=== PATIENT | female | born 1975 | race Caucasian/White ===

== ENCOUNTER 2017-02-08 10:30 | Inpatient (IN) | payer MEDICAID ==
[~2017-02-08] VITALS: Ht 149.9 cm; Wt 75.5 kg
[~2017-02-08 10:30] MED LIST: FERR27TA; PREN1TAB49
[2017-02-08 10:40] VITALS: BP 121/77; PULSE 89; RESP 19; Ht 149.9 cm; Wt 75.5 kg
[2017-02-08] MEDS ORDERED: CARBOPROST 250 MCG INJ IM PRN (11:00)
[2017-02-08] MEDS ORDERED: OXYTOCIN 30 UNITS/LR 500 ML IV PRN (11:00)
[2017-02-08] MEDS ORDERED: AMPICILLIN 2 GM/NS (PMX) 100 ML IV SCH (11:00)
[2017-02-08] MEDS ORDERED: METHYLERGONOVINE 0.2 MG INJ IM PRN (11:00)
[2017-02-08] MEDS ORDERED: CEFAZOLIN 2 GM/50 ML (PMX) 50 ML IV SCH (11:00)
[2017-02-08] MEDS ORDERED: MISOPROSTOL 200 MCG TAB PR PRN (11:00)
[2017-02-08] MEDS: LACTATED RINGER'S 1,000 ML IV SCH ×2 (11:13→17:00)
--- NOTE | 2017-02-08 11:15 | TRIAGE ---
OB Triage Datetime Report Generated by CPN: 02/08/2017 11:15 Datetime: 02/08/2017 10:52 Maternal Assessment Level of Consciousness: Fully Conscious DTR's/Clonus: DTRs 1+ Headache: Denies Blurred Vision: No Respiratory Effort: Unlabored Breath Sounds, Left: Clear and Equal Breath Sounds, Right: Clear and Equal Nausea/Vomiting: Denies RUQ Epigastric Pain: Denies Facial Edema: None Labor Evaluation Frequency: X2 Monitor Mode: External Duration (sec)2399: 40-50 Quality: Mild Pattern: Normal: <= 5 Contractions in 10 Minutes Resting Tone Mcnary: Relaxed Heart Rate FHR Baseline Rate: 150 Monitor Mode: External US Variability: Moderate 6-25 bpm Accelerations: 15X15 Decelerations: None Category: Category I Pain Assessment Pain Scale: 4 Pain Presence: Intermittent Pain Type: Contraction Pain Location: Back Pain Goal: 3 Pain Relief Measures: Comfort Measures Datetime: 02/08/2017 10:41 Vaginal Exam Dilatation (cms): 3.0 Effacement (%): 80 Station: -2 Exam By: abad fajardo Vaginal Bleeding: None Cervix, Consistency: Soft Cervix, Position: Midposition Presentation 'A': Breech Datetime: 02/08/2017 10:27 Time of Arrival: 02/08/2017 10:27 EGA: 38.0 Arrived By: Ambulatory Arrived From: Home Chief Complaint: PT CAME IN C/O UC'S SINCE 3 DAYS AGO. DENIES ANY BLEDING OR ANY OTHER PROBLEM, BA BY MOVES AT THIS TIME ACCORDING TO PT Movement: Present Contractions: Regular Rupture of Membranes: Denies Vaginal Discharge: Present Recent Sexual Intercouse: Denies Abdominal Trauma: Not Applicable Patient Complaints: Contractions Additional Patient Complaints: NONE Initial Plan: MONITOR AND VE
--- NOTE | 2017-02-08 11:17 | RADRPT ---
PROCEDURE: OB ultrasound for biophysical profile CLINICAL INDICATION: Poor tone. TECHNIQUE: Multiple sonographic images of the pelvis were obtained. Transabdominal views of the g ravid uterus are available for review. The images were reviewed on a PACS workstation. COMPARISON: None FINDINGS: breathing movement = 2/2 tone = 2/2 motion = 2/2 YARELIS = 2/2 YARELIS = 10.7 cm Single live intrauterine with cardiac activity of 144 bpm. position is breech . The placenta is fundal. IMPRESSION: 1. Single live intrauterine gestation. 2. Biophysical profile = 8/8. 3. YARELIS = 10.7 cm. 4. Breech presentation. RPTAT: HH .Sarita Hardy MD, Date Time Electronically viewed and signed by .Sarita Hardy MD, on 02/08/2017 11:17 .G/
[2017-02-08 11:38] LABS: ABNORMAL IP MESSAGE 1; BASOPHILS % 0.4 % (0.0-2.0); EOSINOPHILS # 0.1 10^3/ul (0.0-0.5); EOSINOPHILS % 0.9 % (0.0-7.0); HEMATOCRIT 36.7 % (37.0-47.0); HEMOGLOBIN 11.8 g/dl (12.0-16.0); LYMPHOCYTES # 1.9 10^3/ul (0.8-2.9); LYMPHOCYTES % 27.2 % (15.0-51.0); MEAN CORPUSCULAR HEMOGLOBIN 28.2 pg (29.0-33.0); MEAN CORPUSCULAR HGB CONC 32.2 g/dl (32.0-37.0); MEAN CORPUSCULAR VOLUME 87.8 fl (82.0-101.0); MEAN PLATELET VOLUME 14.2 fl (7.4-10.4); MONOCYTE # 0.6 10^3/ul (0.3-0.9); MONOCYTES % 9.3 % (0.0-11.0); NEUTROPHIL # 4.3 10^3/ul (1.6-7.5); NEUTROPHILS % 61.6 % (39.0-77.0); PLATELET COUNT 165 10^3/UL (140-415); RED BLOOD COUNT 4.18 10^6/ul (4.20-5.40); RED CELL DISTRIBUTION WIDTH 14.8 % (11.5-14.5); WHITE BLOOD COUNT 6.9 10^3/ul (4.8-10.8)
[2017-02-08 11:50] LABS: POSITIVE DIFF @See below
[2017-02-08 12:15] LABS: INR 0.91; PROTIME 12.2 Sec (12.2-14.2)
--- NOTE | 2017-02-08 16:37 | HP ---
Date/Time of Note Date/Time of Note DATE: 02/08/17 TIME: 16:31 OB - History Hx of Present Free Text/Dictation Admitted complaining of onset of a uterine contraction 3 days prior to this admission Chief Complaint: Uterine contractions for 5 times in an hour Estimated Due Date: Feb 22, 2017 : 5 Para: 4 Care: Good Care Ultrasounds: Normal mid trimester US Obstetrical Complications: Gestational Diabetes Medical Complications: None Past Family/Social History * Past Medical, Surgical, Family and Obstetric Histories reviewed from chart. Blood Type: A+ Rubella: immune RPR/VDRL: Negative GBS Status: Unknown HBsAG: Negative OB Admission Exam Vital Signs Vital Signs Vital Signs Date Time Temp Pulse Resp B/P Pulse Ox O2 Delivery O2 Flow Rate FiO2 02/08/17 10:40 98.6 89 19 121/77 99 Room Air Physical Exam HEENT: WNL Heart: Rhythm Normal Lungs: Clear, Equal Abdomen: WNL Extremities: Normal Reflexes: Normal Cervical Dilatation: 3cm Effacement: 25% Station: -3 Membranes: Intact Heart Rate: 140's Accelerations: Accelerations Present Decelerations: No Decelerations Varibility: Marked Contractions on Admission: >10 Minutes Apart Date/Time Contractions Began: 02/08/2017 Frequency of Contractions: 4-5 times an hour Duration: Over 20-30 seconds Intensity: Mild Last 72 hours Lab Results CBC & BMP 02/08/17 11:13 OB Assessment/Plan Other Assessment: Term gestation Possible uterine contractions Patient with breech presentation 3 cm cervical dilatation Other plan: Will observe for cervical change Currently patient is contractions 2 or 3 times an hour Cervical change-we will proceed with Obtain over the phone very consult obtain DAVID LEIGH MD Feb 08, 2017 16:37
--- NOTE | 2017-02-08 17:21 | RADRPT ---
PROCEDURE: US OB. CLINICAL INDICATION: Size and dates TECHNIQUE: Multiple sonographic images of the pelvis and gravid uterus were obtained. The images were reviewed on a PACS workstation. COMPARISON: Same day FINDINGS: There is a single viable intrauterine gestation. Cardiac activity is present with 140 beats per min brian. There is a breech presentation. The placenta is maternal right. There is no evidence for an abruption or placenta previa. Measurements were made in order to determine age. The results are as follows: BPD =9.3 cm HC =32.6 cm AC =33.8 cm FL =7.3 cm Estimated gestational age of approximately 37 weeks and 3 days based on ultrasound measurements. Clinical age: 37 weeks and 6 days. The estimated date of delivery is 02/26/17, based on ultrasound measurements. The EFW = 3229 g, 52%, based on LMP age. RPTAT: AA IMPRESSION: Single viable intrauterine gestation of approximately 37 weeks and 3 days based on ultrasound measu rements. .Kristopher North MD, MD Date Time Electronically viewed and signed by .Kristopher North MD, on 02/08/2017 17:20 .S/
[2017-02-08] MEDS ORDERED: OXYTOCIN 30 UNITS/LR 500 ML IV SCH ×2 (20:30)
[2017-02-09] MEDS: LACTATED RINGER'S 1,000 ML IV SCH ×4 (03:00→22:07)
[2017-02-09] MEDS ORDERED: CEFAZOLIN 1 GM INJ ONE (07:00)
[2017-02-09] MEDS ORDERED: TERBUTALINE 1 ML ONE (07:49)
[2017-02-09] MEDS ORDERED: TERBUTALINE 1 MG/ML INJ SC ONE (08:00)
[2017-02-09] MEDS ORDERED: ONDANSETRON 4 MG INJ IV ONE ×2 (08:30→09:00)
[2017-02-09] MEDS ORDERED: CITRIC ACID/NA CITRATE 30 ML CUP PO ONE ×2 (08:30→09:00)
[2017-02-09] MEDS ORDERED: morphine SULFATE/PF (10 MG/10 ML) INJ ONE (08:43)
[2017-02-09] MEDS ORDERED: DEXAMETHASONE 4 MG/ML 1 ML INJ ONE (08:44)
[2017-02-09] MEDS ORDERED: PHENYLephrine (100 MCG/ML) 5ML SYG ONE ×3 (08:44→09:50)
[2017-02-09] MEDS ORDERED: KETOROLAC 30 MG INJ ONE (08:44)
[2017-02-09] MEDS ORDERED: METOCLOPRAMIDE 10 MG INJ ONE ×2 (08:44→10:14)
[2017-02-09] MEDS ORDERED: ONDANSETRON 4 MG INJ ONE ×2 (08:44→08:50)
[2017-02-09] MEDS ORDERED: OXYTOCIN 10 UNIT INJ ONE (08:44)
[2017-02-09] MEDS ORDERED: CITRIC ACID/NA CITRATE 30 ML CUP ONE (08:50)
[2017-02-09] MEDS ORDERED: FENTAnyl 50 MCG/ML VIAL IV PRN ×2 (09:30)
[2017-02-09] MEDS ORDERED: MEPERIDINE 25 MG INJ IV PRN (09:30)
[2017-02-09] MEDS ORDERED: KETOROLAC 30 MG INJ IV PRN (09:30)
[2017-02-09] MEDS ORDERED: OXYCODONE/ACETAMINOPHEN (5/325) TAB PO PRN ×2 (09:30→13:30)
[2017-02-09] MEDS ORDERED: morphine (1 MG/ML) 10ML SYRINGE IV PRN ×2 (09:30)
[2017-02-09] MEDS ORDERED: METOCLOPRAMIDE 10 MG INJ IV PRN (09:30)
[2017-02-09] MEDS ORDERED: ACETAMINOPHEN 500 MG TAB PO PRN (09:30)
[2017-02-09] MEDS ORDERED: NALBUPHINE HCL (10 MG/1 ML) INJ IV PRN (09:30)
[2017-02-09] MEDS ORDERED: HYDROmorphONE (0.2 MG/ML) 10ML SYG IV PRN ×2 (09:30)
[2017-02-09] MEDS ORDERED: EPHEDrine SULFATE 50 MG/5 ML SYG IV PRN (09:30)
[2017-02-09] MEDS ORDERED: LABETALOL HCL 20MG INJ IV PRN (09:30)
[2017-02-09] MEDS ORDERED: ONDANSETRON 4 MG INJ IV PRN (09:30)
[2017-02-09] MEDS ORDERED: NALOXONE (0.4 MG/ML) INJ IV PRN (09:30)
[2017-02-09] MEDS ORDERED: DIPHENHYDRAMINE 50 MG INJ IV PRN ×2 (09:30)
[2017-02-09 10:17] LABS: BARBITURATES Negative (NEGATIVE); BENZODIAZEPINES Negative (NEGATIVE); CANNABINOIDS Negative (NEGATIVE); COCAINE Negative (NEGATIVE); OPIATES Negative (NEGATIVE)
--- NOTE | 2017-02-09 10:19 | OPR ---
Operative Report Planned Procedure Procedure date Feb 09, 2017 Procedure(s) Primary section Performed by see signature line Assisting provider: YEN ALDRIDGE MD Anesthesiologist: CHERI DE LA FUENTE MD Pre-procedure diagnosis 38 weeks plus gestation Breech presentation Anesthesia Type: spinal Procedure Description Under satisfactory anaesthesia a Pfannenstiel incision was made two fingerbreadth above and parallel to the symphysis of pubis. Incision was extended laterally to the border of the Recti muscles on either sides. Incision was carried down with sharp and blunt dissection until fascia was reached. Anterior Recti muscle fascia was incised in mid portion and incision extended laterally to the border of skin incision. Fascia was mobilized from muscle superiorly and Recti muscles were from midline using sharp and blunt dissection. Peritoneum was visualized; Avoiding bowel and bladder it was incised . Incision was extended superiorly and inferiorly. Bladder blade was placed. Posterior peritoneum covering the lower segment of the uterus and lower segment of the uterus were incised. Incision was extended laterally to the border of Round Lig. on either sides and baby was delivered via total breech extraction without difficulty. . Amniotic fluid appeared clear. Cord blood was obtained and cord had 3 vessels . Placenta was delivered spontaneously and appeared intact and complete. Intrauterine cavity was rubbed with a laparotomy sponge. Uterine incision was closed in 2 layers using running stitches of No1 Monocryl. Hemostasis appeared secure. Ovaries and Fallopian tubes were within normal limits. Announcing needle, lap sponge and instrument count to be correct abdomen was closed in layers as follows: Peritoneum and Recti muscles with running stitches of 20 Vicryl. Fascia with running stitch of No 1 PDS. Subcutaneous tissue with running stitches of 20 Chromic and skin was closed using Insorb Patient tolerated the procedure well and was transferred to [facility] in good condition. Post-Procedure Post-procedure diagnosis Status post Findings: Live Baby with latosha breech presentation Estimated blood loss: other (Over 500) Specimen(s): no Grafts/Implants: no Complication(s): no Pt Condition post procedure: stable Disposition: PACU Physician Certification I, the undersigned physician, hereby certify that I have discussed the procedure described in this consent form with this patient (or the patient's legal medical office representative), including: * The risk and benefits of the procedure; * Any adverse reactions that may reasonably be expected to occur; * Any alternative efficacious methods of treatment which may be medically viable ; * The potential problems that may occur during recuperation; * Potential for blood transfusion and associated risks/benefits; and * Any research or economic interest I may have regarding this treatment. I further certify that the patient/legally responsible person was encouraged to ask question and that all questions were answered. DAVID CHANG MD Feb 09, 2017 10:19
[2017-02-09] MEDS ORDERED: MISOPROSTOL 200 MCG TAB PR PRN (13:30)
[2017-02-09] MEDS ORDERED: NA PHOSPHATE/BIPHOS 133 ML ENEMA PR PRN (13:30)
[2017-02-09] MEDS ORDERED: DEXTROSE 50% 50 ML SYRINGE IV PRN ×2 (13:30)
[2017-02-09] MEDS ORDERED: LANOLIN 7 GM TUBE TOP PRN (13:30)
[2017-02-09] MEDS ORDERED: METHYLERGONOVINE 0.2 MG INJ IM PRN (13:30)
[2017-02-09] MEDS ORDERED: GLUCOSE GEL 15 GRAM TUBE BUCCAL PRN (13:30)
[2017-02-09] MEDS ORDERED: GLUCOSE GEL 15 GRAM TUBE PO PRN ×2 (13:30)
[2017-02-09] MEDS ORDERED: GLUCAGON 1 MG INJ IM PRN (13:30)
[2017-02-09] MEDS: ACCU-CHEK XX SCH ×2 (13:30→20:54)
[2017-02-09] MEDS ORDERED: OXYTOCIN 30 UNITS/LR 500 ML IV PRN (13:30)
[2017-02-09] MEDS ORDERED: CARBOPROST 250 MCG INJ IM PRN (13:30)
[2017-02-09] MEDS ORDERED: IBUPROFEN 800 MG TAB PO SCH (14:00)
[2017-02-09] MEDS: CEFAZOLIN 2 GM/50 ML (PMX) 50 ML IV SCH ×2 (14:05→22:06)
[2017-02-09] MEDS: metFORMIN (XR) 500 MG TAB PO SCH (18:10)
[2017-02-09] MEDS: CLINDAMYCIN 300 MG CAP PO SCH (18:10)
[2017-02-09] MEDS: KETOROLAC 30 MG INJ IV PRN (18:11)
[2017-02-09] MEDS: SENNA/DOCUSATE NA (8.6MG/50MG) TAB PO SCH (20:57)
[2017-02-09] MEDS ORDERED: metFORMIN (XR) 500 MG TAB PO SCH (21:00)
[2017-02-10] MEDS: CLINDAMYCIN 300 MG CAP PO SCH ×4 (01:03→18:18)
[2017-02-10] MEDS: ACCU-CHEK XX SCH ×5 (02:00→20:05)
[2017-02-10 04:00] VITALS: BP 96/45; PULSE 86; RESP 18
[2017-02-10] MEDS: CEFAZOLIN 2 GM/50 ML (PMX) 50 ML IV SCH (05:56)
[2017-02-10] MEDS: KETOROLAC 30 MG INJ IV PRN ×2 (05:57→12:01)
[2017-02-10] MEDS: LACTATED RINGER'S 1,000 ML IV SCH ×3 (07:29→21:05)
[2017-02-10 08:30] VITALS: BP 92/54; PULSE 85; RESP 18
[2017-02-10] MEDS: SENNA/DOCUSATE NA (8.6MG/50MG) TAB PO SCH ×2 (09:27→21:15)
[2017-02-10] MEDS: metFORMIN (XR) 500 MG TAB PO SCH ×2 (09:27→18:18)
[2017-02-10] MEDS ORDERED: BISACODYL 10 MG SUPP PR ONE (10:30)
--- NOTE | 2017-02-10 10:56 | NSTRPT ---
NST Information Datetime Report Generated by CPN: 02/10/2017 10:56 Datetime: 02/06/2017 10:41 NST Information EGA: 37.5 Datetime: 02/06/2017 10:30 Test Number: 1 Time on Monitor: 02/06/2017 11:00 Time off Monitor: 02/06/2017 11:48 NST Duration (Min): 48 Reason for NST: Diabetes Mellitus; Other Reason for NST Other: A1DM Test and Monitor Explained: Monitor Explained; Test Explained; Verbalized Understanding; Breastfee ding Info Given Pulse: 75 Resp: 18 SBP: 115 DBP: 71 Test Evaluation NST Interventions: None Patient States Movement: Present Contraction Frequency: X4(mild) FHR Baseline : 145 Variability: Moderate 6-25bpm Accelerations: 15X15 Decelerations: None FHR Category: Category I NST Results: Reactive Comments: To u/s. YARELIS 11.8cm. BREECH. FBS 110. Pt was suppose to bring in glucose log, states forg ot, instructed to bring with next visit. 1200-Pt home undelivered with labor precautions, kick count instructions reviewed and follo w up NST appt given. States understanding and denies further questions at this time. Electronically Signed By E-Signature: with User ID: [id number]
[2017-02-10 11:19] LABS: ABNORMAL IP MESSAGE 1; BASOPHILS % 0.3 % (0.0-2.0); EOSINOPHILS % 0.2 % (0.0-7.0); HEMATOCRIT 30.1 % (37.0-47.0); HEMOGLOBIN 9.6 g/dl (12.0-16.0); LYMPHOCYTES % 17.3 % (15.0-51.0); MEAN CORPUSCULAR HEMOGLOBIN 28.1 pg (29.0-33.0); MEAN CORPUSCULAR HGB CONC 31.9 g/dl (32.0-37.0); MEAN PLATELET VOLUME 14.1 fl (7.4-10.4); MONOCYTES % 8.5 % (0.0-11.0); NEUTROPHIL # 8.6 10^3/ul (1.6-7.5); NEUTROPHILS % 73.1 % (39.0-77.0); PLATELET COUNT 156 10^3/UL (140-415); RED BLOOD COUNT 3.42 10^6/ul (4.20-5.40); RED CELL DISTRIBUTION WIDTH 14.9 % (11.5-14.5); WHITE BLOOD COUNT 11.8 10^3/ul (4.8-10.8)
[2017-02-10 11:25] LABS: POSITIVE DIFF @See below
[2017-02-10 12:06] VITALS: BP 92/52; PULSE 77; RESP 14
[2017-02-10 14:27] LABS: RUBELLA ANTIBODY - IGG 3.53 index
[2017-02-10] MEDS: HYDROCODONE/APAP (5/325) TAB PO PRN ×2 (16:42→21:15)
[2017-02-10 16:50] VITALS: BP 102/60; PULSE 77; RESP 16
--- NOTE | 2017-02-10 18:48 | PN ---
Date/Time of Note Date/Time of Note DATE: 02/10/17 TIME: 18:44 Assessment/Plan VTE Prophylaxis VTE Prophylaxis Intervention: ambulation Lines/Catheters IV Catheter Type (from Nrsg): Peripheral IV Assessment/Plan Assessment/Plan Status post section postop day 1 We will advance diet and ambulate Continue to monitor vital signs and blood sugar Subjective 24 Hr Interval Summary Passing flatus No bowel movement Complaining of slight incisional pain Constitutional: BM, ambulates, flatus, improved, no complaints, urine output Pain Control: well controlled Exam/Review of Systems Vital Signs Vitals Vital Signs Date Time Temp Pulse Resp B/P Pulse Ox O2 Delivery O2 Flow Rate FiO2 02/10/17 16:50 97.9 77 16 102/60 Room Air 02/10/17 15:23 96 21 02/10/17 12:17 Intake and Output 02/09/17 02/09/17 02/10/17 15:00 23:00 07:00 Intake Total 245 ml 1100 ml Output Total 1150 ml 1100 ml Balance -905 ml 1100 ml -1100 ml Exam Free Text/Dictation Abdomen is soft not distended bowel sounds present Incision is covered Constitutional: alert, oriented, well developed Psych: nl mood/affect, no complaints Head: atraumatic, normocephalic Eyes: EOMI, nl conjunctiva, nl lids, nl sclera ENMT: mucosa pink and moist, nl external ears & nose, nl lips & teeth, nl nasal mucosa & septum Neck: non-tender, supple Respiratory: clear to auscultation, normal air movement Cardiovascular: nl pulses, regular rate and rhythm Gastrointestinal: nl liver, spleen, non-tender, soft Drains None Musculoskeletal: nl extremities to inspection, nl gait and stance Extremities: normal pulses Neurological: 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
[2017-02-11] MEDS: ACCU-CHEK XX SCH (02:00)
[2017-02-11 04:10] VITALS: BP 120/70; PULSE 69; RESP 18
[2017-02-11] MEDS: HYDROCODONE/APAP (5/325) TAB PO PRN ×2 (04:12→13:23)
[2017-02-11] MEDS: LACTATED RINGER'S 1,000 ML IV SCH ×3 (05:05→21:05)
[2017-02-11] MEDS: CLINDAMYCIN 300 MG CAP PO SCH ×4 (06:12→18:08)
[2017-02-11 08:00] VITALS: BP 109/62; PULSE 76; RESP 20
[2017-02-11] MEDS: metFORMIN (XR) 500 MG TAB PO SCH ×3 (08:05→18:08)
[2017-02-11] MEDS: SENNA/DOCUSATE NA (8.6MG/50MG) TAB PO SCH ×2 (09:00→21:21)
[2017-02-11 12:29] VITALS: BP 100/60; PULSE 76; RESP 19
[2017-02-11 15:40] VITALS: BP 119/82; PULSE 74; RESP 18
--- NOTE | 2017-02-11 17:54 | DS ---
Date/Time of Note Date/Time of Note home next day DATE: 02/11/17 TIME: 17:52 Obstetrical Discharge Record Final Diagnosis Final Diagnosis: Term delivered Other Final Diagnosis S/P C/S Section Section: Primary Primary Indication breech presentation Complications Gestational Diabetes Condition on Discharge Physical Assessment Last Vitals: see nurses notes Voiding: Yes Bowel Movement: Yes Breast: Soft, non-tender, Filling Fundus: Firm Abdomen and Incision: soft BS + Incisiom healing well Calf Tenderness: No Patient Condition: Good DAVID CHANG MD Feb 11, 2017 17:54
--- NOTE | 2017-02-11 18:03 | DS ---
Date/Time of Note Date/Time of Note DATE: 02/11/17 TIME: 18:02 Discharge Summary Admission/Discharge Info Admit Date/Time Feb 08, 2017 at 10:54 Discharge Date/Time February 12, 2017 Discharge Diagnosis Status post Patient Condition: Good Procedures Primary delivery Hx of Present Illness 41-year-old female admitted at 38 weeks with uterine contractions which subsided however had a primary at 38+ weeks for episode of prolonged variable deceleration of heart tones with breech presentation Hospital Course Uncomplicated Home Meds Reported Medications Ferrous Sulfate (Iron) 1 Tab Tablet 11/23/10 Vits W-Ca,Fe,Fa(<1MG) () 1 Tab Tablet 11/23/10 Follow-up Plan 1 week in clinic Primary Care Provider Care Physician No Primary Time spent on discharge: > 30 minutes Pending Labs Laboratory Tests Test 02/10/17 18:11 02/10/17 21:13 02/11/17 02:11 02/11/17 08:02 Bedside Glucose 91mg/dL (70-220) 82mg/dL (70-220) 79mg/dL (70-220) 86mg/dL (70-220) Test 02/11/17 10:36 02/11/17 17:22 Bedside Glucose 101mg/dL (70-220) 85mg/dL (70-220) DAVID CHANG MD Feb 11, 2017 18:03
--- NOTE | 2017-02-11 18:04 | PD.PPDC ---
MATERIALS ANALYST Discharge Instruction Provider Information Physician Information 41-year-old female had primary delivery for breech presentation Diagnosis Final Diagnosis: Status post delivery Condition Patient Condition: Good Diet Diet: Resume Regular Diet Activity/Restrictions Activity: September Shower Restrictions: No Exercising No Lifting Nothing in the Vagina Return to Work or School: Apr 13, 2017 Follow-up Follow-up with Physician: 1, Week/Weeks (In clinic for follow-up) Return to clinic for MANAGING BROKER Instructions: Fever greater than 101 Chills OB Instructions: Breast Tenderness Depression Surgical Instructions: Incisional Drainage Incisional Redness DAVID CHANG MD Feb 11, 2017 18:04
[2017-02-11] MEDS ORDERED: IBUP800T25 PO (18:05)
[2017-02-11] MEDS ORDERED: METF500T3 PO (18:12)
[2017-02-11 20:00] VITALS: BP 134/72; PULSE 89; RESP 16
[2017-02-12] MEDS: CLINDAMYCIN 300 MG CAP PO SCH ×2 (00:44→06:11)
[2017-02-12] MEDS: ACCU-CHEK XX SCH (02:00)
[2017-02-12] MEDS: LACTATED RINGER'S 1,000 ML IV SCH (05:05)
[2017-02-12] MEDS: SENNA/DOCUSATE NA (8.6MG/50MG) TAB PO SCH (09:00)
[2017-02-12] MEDS ORDERED: DIPHTH/TET/ACEL PERTUSS (ADULT) 0.5 ML VIAL IM* ONE (09:00)
[2017-02-12] MEDS: metFORMIN (XR) 500 MG TAB PO SCH (09:58)
[2017-02-12] MEDS ORDERED: IBUPROFEN 800 MG TAB PO SCH (18:01)
== END 2017-02-12 14:00 | disposition home or self-care (01) | DRG 766 ==
LOC: OBT 10:30 → L-D 10:32 → OBT 10:54 → L-D 10:54 → PP1 02-09 12:41
PROVIDERS: ADMIT Obstetrics & Gynecology; ATTEND Obstetrics & Gynecology
PROC: 10D00Z1 Extraction of Products of Conception, Low, Open Approach (ICD-10-PCS; principal; 2017-02-09 09:45)
DX: O32.1XX0 Maternal care for breech presentation, not applicable or unspecified (principal); Z37.0 Single live birth; Z3A.38 38 weeks gestation of pregnancy
CPT/HCPCS: 76815; 76818; 80307; 82947; 82962; 85025; 85610; 85730; 86592; 86703; 86762; 86850; 86900; 86901; 87340; 90715; 94760; 99464; G0463; J0690; J1100; J1885; J2274; J2370; J2405; J2590; J2765; J3105; J7120

== ENCOUNTER 2017-03-22 21:04 | Emergency (ER) | payer MEDICAID ==
[~2017-03-22] VITALS: Ht 160 cm; Wt 69.0 kg
[~2017-03-22 21:04] MED LIST changes: +IBUP800T25 PO; +METF500T3 PO
[2017-03-22 21:10] VITALS: Ht 160 cm; Wt 69.0 kg
[2017-03-22] MEDS ORDERED: ONDANSETRON 4 MG INJ IV STA (21:54)
[2017-03-22] MEDS ORDERED: morphine 4 MG/ML VIAL IV STA (21:54)
--- NOTE | 2017-03-22 23:04 | RADRPT ---
PROCEDURE: US Abdomen. CLINICAL INDICATION: Abdominal pain. TECHNIQUE: Multiple real-time images were acquired of the patient's abdomen and retroperitoneum ut ilizing a high resolution transducer with Doppler interrogation. Images were reviewed on a PACS work station COMPARISON: None available FINDINGS: The liver demonstrates mild enlargement in size, measuring 17.4 cm. There is diffuse heterogeneous h yperechoic echotexture consistent with mild fatty infiltration. The liver capsule margins are ghada h without evidence of nodularity. There is no intrahepatic biliary ductal dilatation or masses. Th e portal vein demonstrates normal hepatopetal flow. The gallbladder is adequately distended without evidence of gallstones, wall thickening or pericholecystic fluid. The sonographic Fuentes sign is a bsent. No intra or extrahepatic biliary dilatation is seen. The common bile duct measures 4.3 mm in maximal dimension. The visualized portions of the pancreas are unremarkable. No free fluid is kemal ntified. The right kidney is normal size, and demonstrates normal echogenicity and morphology. The right kid niurka measures 9.5 cm in long dimension. There is no dilatation of the pelvicaliceal system. There a re no perinephric fluid collections. There are no areas of increased echogenicity to suggest nephro lithiasis. The visualized portions of the aorta are normal in appearance. IMPRESSION: 1. Hepatomegaly with mild fatty infiltration. 2. Otherwise, normal sonographic findings of the abdomen. No evidence of gallstones or cholecystit is. RPTAT: HGAS .Jac Toussaint MD, Date Time Electronically viewed and signed by .Jac Toussaint MD, MD on 03/22/2017 23:04 .S/
[2017-03-22 23:31] LABS: BASOPHIL # 0.1 10^3/ul (0.0-0.1); BASOPHILS % 0.4 % (0.0-2.0); EOSINOPHILS # 0.3 10^3/ul (0.0-0.5); EOSINOPHILS % 1.8 % (0.0-7.0); HEMOGLOBIN 12.8 g/dl (12.0-16.0); LYMPHOCYTES # 1.7 10^3/ul (0.8-2.9); LYMPHOCYTES % 11.9 % (15.0-51.0); MEAN CORPUSCULAR HEMOGLOBIN 28.6 pg (29.0-33.0); MEAN CORPUSCULAR VOLUME 89.5 fl (82.0-101.0); MEAN PLATELET VOLUME 12.3 fl (7.4-10.4); MONOCYTE # 0.8 10^3/ul (0.3-0.9); MONOCYTES % 5.8 % (0.0-11.0); NEUTROPHIL # 11.2 10^3/ul (1.6-7.5); NEUTROPHILS % 79.6 % (39.0-77.0); PLATELET COUNT 250 10^3/UL (140-415); RED BLOOD COUNT 4.47 10^6/ul (4.20-5.40); RED CELL DISTRIBUTION WIDTH 15.2 % (11.5-14.5); WHITE BLOOD COUNT 14.1 10^3/ul (4.8-10.8)
[2017-03-22 23:50] LABS: ALBUMIN 4.3 g/dl (3.3-4.9); ALBUMIN/GLOBULIN RATIO 1.07; BILIRUBIN,INDIRECT 0.3 mg/dl (0-1.1); BILIRUBIN,TOTAL 0.3 mg/dl (0.2-1.3); CALCIUM 9.5 mg/dl (8.4-10.2); CREATININE 0.8 mg/dl (0.44-1.00); POTASSIUM 4.2 mmol/L (3.5-5.1); TOTAL PROTEIN 8.3 g/dl (6.1-8.1)
[2017-03-22 23:58] LABS: ADD UMIC YES; UR ASCORBIC ACID NEGATIVE (NEGATIVE); UR BACTERIA FEW /HPF (NONE SEEN); UR BILIRUBIN (Dip) NEGATIVE (NEGATIVE); UR BLOOD (Dip) 2+ mg/dL (NEGATIVE); UR CLARITY SLIGHTLY CLOUDY (CLEAR); UR COLOR YELLOW (YELLOW); UR GLUCOSE (Dip) NEGATIVE (NEGATIVE); UR KETONES (Dip) NEGATIVE (NEGATIVE); UR LEUKOCYTE ESTERASE (Dip) 1+ Leu/ul (NEGATIVE); UR NITRITE (Dip) NEGATIVE (NEGATIVE); UR RBC 1 /HPF (0-5); UR SPECIFIC GRAVITY (Dip) 1.023 (1.003-1.030); UR SQUAMOUS EPITHELIAL CELL FEW /HPF (FEW); UR TOTAL PROTEIN (Dip) NEGATIVE (NEGATIVE); UR UROBILINOGEN (Dip) 1+ mg/dL (NEGATIVE)
[2017-03-23] MEDS ORDERED: CIPR500T4 PO (00:15)
--- NOTE | 2017-03-23 00:29 | ERD ---
ER Documentation Chief Complaint Chief Complaint epigastric pain x2 hours after eating cake. 6 wks ago. HPI 41-year-old female presenting with a chief complaint of epigastric pain 2 hours. Patient was eating cake when the symptoms began. History of 6 weeks ago. Has not taken any medications to relieve the symptoms. Describes the pain as epigastric and right upper quadrant. Nausea, vomiting, diarrhea, constipation, similar symptoms in the past. Denies alcohol abuse and drug use. No aggravating or alleviating factors. No radiation of pain. Pain described as 7 out of 10 and worse with pressure. Patient has no other complaints and describes no other associated manifestations. Nursing notes have been reviewed and are consistent with history given. ROS All systems reviewed and are negative except as per history of present illness. Medications Home Meds Active Scripts Ciprofloxacin Hcl* (Ciprofloxacin Hcl*) 500 Mg Tablet, 500 MG PO BID for 14 Days , TAB Prov:PIERCE GARCIA PA-C 03/23/17 Metformin* (Glucophage* XR) 500 Mg Tab.sr.24h, 500 MG PO WITH BREAKFAST DINNE, # 120 6 Refills Prov:DAVID CHANG MD 02/11/17 Ibuprofen* (Ibuprofen*) 800 Mg Tablet, 800 MG PO Q8, #30 TAB 0 Refills Prov:DAVID CHANG MD 02/11/17 Reported Medications Ferrous Sulfate (Iron) 1 Tab Tablet 11/23/10 Vits W-Ca,Fe,Fa(<1MG) () 1 Tab Tablet 11/23/10 Allergies Allergies: Coded Allergies: No Known Allergy (Verified , 03/22/17) PMhx/Soc Medical and Surgical Hx: pt denies Medical Hx History of Surgery: Yes (C SECTION 01/2017) Anesthesia Reaction: No Hx Neurological Disorder: No Hx Respiratory Disorders: No Hx Cardiac Disorders: No Hx Psychiatric Problems: No Hx Miscellaneous Medical Probl: No Hx Alcohol Use: No Hx Substance Use: No Hx Tobacco Use: No Smoking Status: Never smoker Physical Exam Vitals Vital Signs Date Time Temp Pulse Resp B/P Pulse Ox O2 Delivery O2 Flow Rate FiO2 03/22/17 21:10 97.4 72 18 100/51 98 Physical Exam Const: Obese 41-year-old female no acute distress. Head: Atraumatic Eyes: Normal Conjunctiva ENT: Normal External Ears, Nose and Mouth. Neck: Full range of motion..~ No meningismus. Resp: Clear to auscultation bilaterally Cardio: Regular rate and rhythm, no murmurs Abd: Mild right upper quadrant tenderness. No liver palpated. Soft, non distended. Normal bowel sounds Skin: No petechiae or rashes Back: No midline or flank tenderness. No CVA tenderness. Ext: No cyanosis, or edema Neur: Awake and alert Psych: Normal Mood and Affect Result Diagram: 03/22/17223103/22/172231 Results 24 hrs Laboratory Tests Test 03/22/17 22:32 White Blood Count 14.110^3/ul Red Blood Count 4.4710^6/ul Hemoglobin 12.8g/dl Hematocrit 40.0% Mean Corpuscular Volume 89.5fl Mean Corpuscular Hemoglobin 28.6pg Mean Corpuscular Hemoglobin Concent 32.0g/dl Red Cell Distribution Width 15.2% Platelet Count 14416^3/UL Mean Platelet Volume 12.3fl Neutrophils % 79.6% Lymphocytes % 11.9% Monocytes % 5.8% Eosinophils % 1.8% Basophils % 0.4% Nucleated Red Blood Cells % 0.0/100WBC Neutrophils # 11.210^3/ul Lymphocytes # 1.710^3/ul Monocytes # 0.810^3/ul Eosinophils # 0.310^3/ul Basophils # 0.110^3/ul Nucleated Red Blood Cells # 0.010^3/ul Urine Color YELLOW Urine Clarity SLIGHTLY CLOUDY Urine pH 6.0 Urine Specific [place] 1.023 Urine Ketones NEGATIVEmg/dL Urine Nitrite NEGATIVEmg/dL Urine Bilirubin NEGATIVEmg/dL Urine Urobilinogen 1+mg/dL Urine Leukocyte Esterase 1+Giovany/ul Urine Microscopic RBC 1/HPF Urine Microscopic WBC 2/HPF Urine Squamous Epithelial Cells FEW/HPF Urine Bacteria FEW/HPF Urine Hemoglobin 2+mg/dL Urine Glucose NEGATIVEmg/dL Urine Total Protein NEGATIVEmg/dl Sodium Level 143mmol/L Potassium Level 4.2mmol/L Chloride Level 104mmol/L Carbon Dioxide Level 29mmol/L Anion Gap 14 Blood Urea Nitrogen 18mg/dl Creatinine 0.80mg/dl Glucose Level 117mg/dl Calcium Level 9.5mg/dl Total Bilirubin 0.3mg/dl Direct Bilirubin 0.00mg/dl Indirect Bilirubin 0.3mg/dl Aspartate Amino Transf (AST/SGOT) 82IU/L Alanine Aminotransferase (ALT/SGPT) 48IU/L Alkaline Phosphatase 153IU/L Total Protein 8.3g/dl Albumin 4.3g/dl Globulin 4.00g/dl Albumin/Globulin Ratio 1.07 Lipase 195U/L Current Medications Medications (Trade) Dose Ordered Sig/Nathaniel Route PRN Reason Start Time Stop Time Status Last Admin Dose Admin Morphine Sulfate (morphine) 4 mg ONCE STAT IV 03/22/17 21:54 03/22/17 21:56 DC 03/22/17 22:39 Ondansetron HCl (Zofran Inj) 4 mg ONCE STAT IV 03/22/17 21:54 03/22/17 21:56 DC 03/22/17 22:39 Procedures/MDM 41-year-old female with a chief complaint of right upper quadrant/epigastric pain 2 hours as described in history and physical examination. Ultrasound was obtained read by the radiologist given the following impression: 1. Hepatomegaly with mild fatty infiltration. 2. Otherwise, normal sonographic findings of the abdomen. No evidence of gallstones or cholecystitis. CBC: WBC 14.1, neutrophils 79.6. CMP: AST 82, Alk phos 153. Urinalysis: 1+ leukocyte esterase, few bacteria, few epithelial cells, 2 WBC, 1 RBC. Urine : Negative At this time I have little suspicion for cholangitis, pancreatitis, pyelonephritis, related pathologies, mechanical obstruction, or other acute abdomen. Most likely diagnosis is abdominal pain due to fatty liver versus abdominal pain of unknown etiology. Patient will be discharged with conservative management. I have suggested [id number] acetaminophen for pain control. I have instructed the patient to follow-up and 8 hours for reevaluation, she has verbally agreed. I presented the case to my attending agrees with assessment and plan. I have spoke with the patient regarding their condition and future management. They have verbally responded that they understand their status and treatment plan. The patients vitals are stable, and their current condition is appropriate for discharge. The patient will be given discharge instructions with return precautions. Departure Diagnosis: Primary Impression: UTI (urinary tract infection) Urinary tract infection type: site unspecified Hematuria presence: without hematuria Qualified Code: N39.0 - Urinary tract infection without hematuria, site unspecified Condition: Stable Patient Instructions: Understanding Urinary Tract Infections (UTIs) Additional Instructions: Lauren un seguimiento con [facility] P[facility] dentro de los prximos 1-3 maldonado para nirmala evaluaci n ms completa y nirmala posible derivacin a un especialista. Devuelva el departamento de emergencia inmediatamente si los sntomas empeoran o cambian. Si tiene alguna pregunta con respecto a los medicamentos, consulte con [facility] farm[facility] utico o con nosotros antes de salir. Si se producen reacciones adversas mientras shrei steve medicamentos, suspenda el tratamiento y regrese inmediatamente al servicio de urgencias. [place] steve medicamentos segn las indicaciones y complete el curso completo del tratamiento. PIERCE GARCIA PA-C Mar 23, 2017 00:29
== END 2017-03-23 00:44 | disposition home or self-care (01) ==
LOC: FTE 21:04
DX: N39.0 Urinary tract infection, site not specified (principal); Z79.84 Long term (current) use of oral hypoglycemic drugs
CPT/HCPCS: 36415; 76705; 80053; 81001; 83690; 85025; 96374; 96375; J2270; J2405; Z7502